=== PATIENT | male | born 1995 ===

== ENCOUNTER 2023-08-30 10:28 | Emergency (ER) | payer MEDICAID, OTHER ==
[~2023-08-30] VITALS: Ht 170.2 cm; Wt 73.5 kg
[2023-08-30 10:40] VITALS: BP 137/77; PULSE 110; RESP 20; TEMP 98.9; O2SAT 100
[2023-08-30 10:50] VITALS: TEMP 98.9; O2SAT 100
[2023-08-30] MEDS ORDERED: ACETAMINOPHEN EXTRA STRENGTH 500 MG TAB PO ONE (11:10)
[2023-08-30] MEDS ORDERED: AMOX1TAB8 PO (12:33)
[2023-08-30] MEDS ORDERED: IBUP-2213 PO (12:33)
[2023-08-30] MEDS ORDERED: KETOROLAC 30 MG/ML VIAL IM ONE (12:35)
[2023-08-30 13:22] VITALS: BP 133/75; PULSE 90; RESP 18; O2SAT 100
== END 2023-08-30 13:22 | disposition home or self-care (01) ==
LOC: MED 10:28
DX: S02.2XXA Fracture of nasal bones, initial encounter for closed fracture (principal); S02.40CA Maxillary fracture, right side, initial encounter for closed fracture; S02.19XA Other fracture of base of skull, initial encounter for closed fracture; S06.0X0A Concussion without loss of consciousness, initial encounter; S30.811A Abrasion of abdominal wall, initial encounter; R00.0 Tachycardia, unspecified; Z79.2 Long term (current) use of antibiotics; Z79.1 Long term (current) use of non-steroidal anti-inflammatories (NSAID); Y04.0XXA Assault by unarmed brawl or fight, initial encounter; Y92.89 Other specified places as the place of occurrence of the external cause; Y93.89 Activity, other specified; Y99.8 Other external cause status
CPT/HCPCS: 70450; 70486; 71045; 96372; 99285; J1885